=== PATIENT | female | born 1955 | race Caucasian/White ===

== ENCOUNTER → 2017-01-28 | Outpatient (CLI) | payer MEDICARE | LOC: SLEEP-COR 21:30 | DX: G47.33 Obstructive sleep apnea (adult) (pediatric) (principal) | CPT/HCPCS: 95811 ==

== ENCOUNTER 2017-02-16 21:19 | Emergency (ER) | payer MEDICARE | END 2017-02-17 02:00 | disposition left against medical advice (07) | LOC: ER1 21:19 | DX: Z53.21 Procedure and treatment not carried out due to patient leaving prior to being seen by health care provider (principal) ==